=== PATIENT | female | born 1945 | race Asian ===

== ENCOUNTER 2017-08-18 09:12 | Day surgery (SDC) | payer OTHER ==
[2017-08-18] MEDS ORDERED: PROPOFOL 40 ML (10:06)
== END 2017-08-18 14:44 | disposition home or self-care (01) ==
LOC: GIL 09:12
DX: Z12.11 Encounter for screening for malignant neoplasm of colon (principal); K64.9 Unspecified hemorrhoids
CPT/HCPCS: 45385; 88305